=== PATIENT | female | born 1965 | race Native Hawaiian/Other Pacific Islander ===

== ENCOUNTER 2018-05-11 19:04 | Emergency (ER) | payer BC ==
[~2018-05-11] VITALS: Ht 134.6 cm; Wt 99.8 kg
[2018-05-11 19:10] VITALS: TEMP 98.1
[2018-05-11 20:11] LABS: PLATELET COUNT 220 K/uL (152-353)
[2018-05-11 20:14] LABS: POTASSIUM 3.7 mmol/L (3.6-5.2); SODIUM 135 mmol/L (136-145)
[2018-05-11 21:01] VITALS: BP 124/57
== END 2018-05-11 21:43 | disposition home or self-care (01) ==
LOC: ED 19:04
DX: R07.89 Other chest pain (principal); E11.65 Type 2 diabetes mellitus with hyperglycemia; R00.1 Bradycardia, unspecified
CPT/HCPCS: 36415; 80053; 82550; 82553; 83036; 84484; 85027; 86318; 93005; 96374; 96375; 99284; J2270; J2405

== ENCOUNTER 2018-06-22 13:03 | Outpatient (CLI) | payer BC | END 2018-06-22 21:46 | disposition home or self-care (01) | LOC: MAMMO 13:03 | DX: Z12.31 Encounter for screening mammogram for malignant neoplasm of breast (principal) ==

== ENCOUNTER 2019-11-29 17:58 | Emergency (ER) | payer BC ==
[~2019-11-29] VITALS: Ht 149.9 cm; Wt 93.4 kg
[2019-11-29 18:37] LABS: PLATELET COUNT 308 K/uL (152-353)
[2019-11-29 18:43] LABS: POTASSIUM 5.3 mmol/L (3.6-5.2)
[2019-11-29 22:00] VITALS: BP 151/88; TEMP 98.3
== END 2019-11-29 22:00 | disposition home or self-care (01) ==
LOC: ED 17:58
PROVIDERS: Hospitalist
DX: K57.90 Diverticulosis of intestine, part unspecified, without perforation or abscess without bleeding (principal); R11.2 Nausea with vomiting, unspecified; R19.7 Diarrhea, unspecified
CPT/HCPCS: 80053; 81000; 82150; 83605; 83690; 85027; 85610; 85730; 87040; 96360; 96361; 96365; 96366; 96375; 99284; J1170; J1956; J2405; J2765; Q9963

== ENCOUNTER 2020-09-03 16:34 | Outpatient (CLI) | payer BC, OTHER | END 2020-09-03 21:18 | disposition home or self-care (01) | LOC: INF 16:34 | PROVIDERS: ATTEND Internal Medicine | DX: Z23 Encounter for immunization (principal) | CPT/HCPCS: 96372 ==

== ENCOUNTER 2020-09-30 15:23 | Outpatient (CLI) | payer BC, OTHER | END 2020-09-30 21:36 | disposition home or self-care (01) | LOC: INF 15:23 | PROVIDERS: ATTEND Internal Medicine | DX: Z23 Encounter for immunization (principal) | CPT/HCPCS: 96372 ==

== ENCOUNTER 2021-12-18 09:54 | Outpatient (CLI) | payer BC | END 2021-12-18 21:10 | disposition home or self-care (01) | LOC: MAMMO 09:54 | PROVIDERS: ATTEND Obstetrics & Gynecology | DX: Z12.31 Encounter for screening mammogram for malignant neoplasm of breast (principal) ==

== ENCOUNTER 2023-01-11 08:07 | Outpatient (CLI) | payer BC | END 2023-01-11 19:18 | disposition home or self-care (01) | LOC: US 08:07 | PROVIDERS: ATTEND Nurse Practitioner Family | DX: I10 Essential (primary) hypertension (principal) ==

== ENCOUNTER 2023-01-14 08:18 | Outpatient (CLI) | payer BC ==
[~2023-01-14] VITALS: Ht 149.9 cm; Wt 89.4 kg
== END 2023-01-14 18:57 | disposition home or self-care (01) ==
LOC: NM 08:18
PROVIDERS: ATTEND Nurse Practitioner Family
DX: I10 Essential (primary) hypertension (principal)
CPT/HCPCS: A9500; J2785